=== PATIENT | male | born 2000 | race African-American/Black ===

== ENCOUNTER 2023-09-02 10:56 | Emergency (ER) | payer SELFPAY ==
[2023-09-02 11:02] VITALS: RESP 18; TEMP 97.5; BMI 30.7
[2023-09-02] MEDS ORDERED: METOCLOPRAMIDE HCL INJECTION 10 MG/2 ML VIAL ONE (11:49)
[2023-09-02] MEDS ORDERED: KETOROLAC TROMETHAMINE 15 MG/ML VIAL ONE (11:49)
[2023-09-02] MEDS ORDERED: ACETAMINOPHEN INJECTION 100 ML IVPB ONE (11:49)
[2023-09-02] MEDS: SODIUM CHLORIDE 0.9% 500 ML INFUS.BAG IV ONE (11:55)
[2023-09-02] MEDS: KETOROLAC TROMETHAMINE 15 MG/ML VIAL IVPUSH ONE (11:55)
[2023-09-02] MEDS: ACETAMINOPHEN 1000 MG/100 ML BAG IVPB ONE (11:55)
[2023-09-02] MEDS: METOCLOPRAMIDE HCL INJECTION 10 MG/2 ML VIAL IVPB ONE (11:56)
[2023-09-02 12:18] LABS: BASO % 0.5 % (0-2.0); EOS % 1.7 % (0-4.5); HEMATOCRIT 43.7 % (35.4-49); HEMOGLOBIN 14.9 GM/dL (11.7-16.9); LYMPH % 28.3 % (8-40); MCH 29.1 pg (25.7-33.7); MCHC 34.1 g/dl (32.0-35.9); MEAN CELL VOLUME 85.5 fl (80-96); MEAN PLT VOLUME 8.1 fl (7.5-11.1); MONO % 7.7 % (3.8-10.2); NEUT % 61.8 % (42.8-82.8); PLATELET COUNT 320 10^3/uL (134-434); RBC 5.11 M/mm3 (4.00-5.60); RDW 13.7 % (11.9-15.9); WHITE BLOOD COUNT 7.5 K/mm3 (4.0-10.0)
[2023-09-02 12:26] LABS: POTASSIUM 3.9 mmol/L (3.5-5.1)
[2023-09-02 12:27] LABS: ALBUMIN 4.2 g/dl (3.4-5.0); CALCIUM 9.7 mg/dL (8.5-10.1)
[2023-09-02 12:28] LABS: BLOOD UREA NITROGEN 13.8 mg/dL (7-18)
[2023-09-02 12:31] LABS: CREATININE 1.1 mg/dL (0.55-1.3)
[2023-09-02 12:33] LABS: BILIRUBIN,TOTAL 0.5 mg/dL (0.2-1); TOT PROT 8.1 g/dl (6.4-8.2)
[2023-09-02 13:07] VITALS: BP 157/96; PULSE 68
== END 2023-09-02 13:15 | disposition home or self-care (01) ==
LOC: JER 10:56
PROC: 3E033NZ Introduction of Analgesics, Hypnotics, Sedatives into Peripheral Vein, Percutaneous Approach (ICD-10-PCS; principal; 2023-09-02)
PROC: 3E0333Z Introduction of Anti-inflammatory into Peripheral Vein, Percutaneous Approach (ICD-10-PCS; 2023-09-02)
PROC: 3E033GC Introduction of Other Therapeutic Substance into Peripheral Vein, Percutaneous Approach (ICD-10-PCS; 2023-09-02)
DX: G43.909 Migraine, unspecified, not intractable, without status migrainosus (principal); H53.149 Visual discomfort, unspecified
CPT/HCPCS: 36415; 80053; 84484; 85025; 93005; 93010; 99284-25; J0131